=== PATIENT | male | born 1995 | race Caucasian/White ===

== ENCOUNTER 2016-12-16 14:38 | Emergency (ER) | payer BC ==
[2016-12-16 15:07] LABS: BASOPHILS % (AUTO) 1 % (0-3); EOSINOPHILS % (AUTO) 0 % (0-9); HEMATOCRIT 43 % (39-53); MEAN CORPUSCULAR HGB CONC 36.2 gm/dl (32.0-36.0); MEAN CORPUSCULAR VOLUME 83 fL (80-100); MONOCYTES % (AUTO) 7.6 % (0-12); NEUTROPHILS % (AUTO) 56.9 % (37-80)
[2016-12-16 15:15] VITALS: PULSE 60; TEMP 96.9; O2SAT 99
[2016-12-16 15:32] LABS: ALBUMIN 4.1 gm/dl (3.4-5.0); ALT 40 IU/L (14-63); CALCIUM 9.3 mg/dl (8.5-10.1); GLOM FILT RATE 120 mL/min (>60); POTASSIUM 3.7 mMol/L (3.5-5.1); SODIUM 140 mMol/L (136-145); THYROID STIMULATING HORMONE 3.495 uIU/ml (0.358-3.740)
[2016-12-16 15:33] LABS: SALICYLATE < 2.8 mg/dl (2.8-30.0)
[2016-12-16 17:19] LABS: AMPHETAMINES NEGATIVE (NEGATIVE); METHADONE NEGATIVE (NEGATIVE); OPIATES(OP13) NEGATIVE (NEGATIVE); OXYCODONE(OXY) NEGATIVE (NEGATIVE); PROPOXYPHENE(PPX) NEGATIVE (NEGATIVE); TRICYCLIC ANTIDEPRESSANTS NEGATIVE (NEGATIVE)
[2016-12-16 19:02] VITALS: BP 136/80; RESP 16
== END 2016-12-16 21:39 | disposition short-term general hospital (02) ==
LOC: ED 14:38
DX: F31.9 Bipolar disorder, unspecified (principal)
CPT/HCPCS: 36415; 80053; 80305; 80307; 84443; 85025; 99282; 99284